=== PATIENT | female | born 1990 | race Caucasian/White ===

== ENCOUNTER 2019-05-24 05:41 | Emergency (ER) | payer OTHER | END 2019-05-24 07:47 | disposition other institution (70) | LOC: ED 05:41 | DX: Z02.89 Encounter for other administrative examinations (principal) ==

== ENCOUNTER 2020-01-28 00:10 | Emergency (ER) | payer OTHER ==
[~2020-01-28] VITALS: Ht 165.1 cm; Wt 49.9 kg
[2020-01-28 00:12] VITALS: BP 136/74; Ht 165.1 cm; Wt 49.9 kg
== END 2020-01-28 00:53 | disposition other institution (70) ==
LOC: ED 00:10
DX: Z02.89 Encounter for other administrative examinations (principal)

== ENCOUNTER 2020-04-08 14:37 | Emergency (ER) | payer OTHER ==
[~2020-04-08] VITALS: Ht 165.1 cm; Wt 59.0 kg
[2020-04-08 14:40] VITALS: Ht 165.1 cm; Wt 59.0 kg
[2020-04-08 16:41] LABS: BASOPHIL % 0.4 % (0-2); RED CELL DISTRIBUTION WIDTH 12.8 % (11.5-14.5)
[2020-04-08 16:42] LABS: PLATELET COUNT 461 x10^3mcL (130-400)
[2020-04-08 17:00] LABS: CALCIUM 9.3 mg/dL (8.5-10.1); CARBON DIOXIDE 31.9 mmol/L (21-32); CHLORIDE SERUM 98 mmol/L (98-107); CREATININE SERUM 0.8 mg/dL (0.6-1.0); GFR1 > 60 mL/min; GLUCOSE SERUM 85 mg/dL (74-106); POTASSIUM SERUM 3.5 mmol/L (3.5-5.1); SODIUM SERUM 133 mmol/L (136-145)
[2020-04-08 17:05] LABS: ALBUMIN 3.6 g/dL (3.4-5.0); ALKALINE PHOSPHATASE 113 U/L (46-116); ALT/SGPT 22 U/L (14-59); AST/SGOT 19 U/L (15-37); BILIRUBIN TOTAL 0.3 mg/dL (0.20-1.00)
[2020-04-08 17:21] LABS: TOTAL PROTEIN, SERUM 8.3 g/dL (6.4-8.2)
[2020-04-08 18:02] VITALS: BP 107/59
== END 2020-04-08 20:05 | disposition left against medical advice (07) ==
LOC: ED 14:37
PROVIDERS: Emergency Medicine
DX: L03.213 Periorbital cellulitis (principal); F11.10 Opioid abuse, uncomplicated
CPT/HCPCS: J0696; J2405; J3010; J3370; Q0092

== ENCOUNTER 2020-04-22 20:30 | Emergency (ER) | payer OTHER ==
[~2020-04-22] VITALS: Ht 162.6 cm; Wt 61.2 kg
[2020-04-22 21:04] VITALS: BP 113/49; Ht 162.6 cm; Wt 61.2 kg
== END 2020-04-22 22:33 | disposition left against medical advice (07) ==
LOC: ED 20:30
DX: Z53.21 Procedure and treatment not carried out due to patient leaving prior to being seen by health care provider (principal)

== ENCOUNTER 2020-05-10 02:38 | Emergency (ER) | payer OTHER ==
[~2020-05-10] VITALS: Ht 165.1 cm; Wt 59.0 kg
[2020-05-10 02:39] VITALS: BP 158/96; Ht 165.1 cm; Wt 59.0 kg
== END 2020-05-10 06:46 | disposition home or self-care (01) ==
LOC: ED 02:38
DX: R09.89 Other specified symptoms and signs involving the circulatory and respiratory systems (principal); Z20.828 Contact with and (suspected) exposure to other viral communicable diseases
CPT/HCPCS: U0003

== ENCOUNTER 2020-05-12 15:11 | Emergency (ER) | payer OTHER ==
[~2020-05-12] VITALS: Ht 165.1 cm; Wt 59.0 kg
[2020-05-12 15:53] VITALS: Ht 165.1 cm; Wt 59.0 kg
[2020-05-12 17:24] LABS: BASOPHIL % 0.2 % (0-2); PLATELET COUNT 294 x10^3mcL (130-400); RED CELL DISTRIBUTION WIDTH 13.9 % (11.5-14.5)
[2020-05-12 17:42] LABS: CALCIUM 8.6 mg/dL (8.5-10.1); CARBON DIOXIDE 31.2 mmol/L (21-32); CHLORIDE SERUM 103 mmol/L (98-107); CREATININE SERUM 1.1 mg/dL (0.6-1.0); GFR1 > 60 mL/min; GLUCOSE SERUM 100 mg/dL (74-106); POTASSIUM SERUM 4.1 mmol/L (3.5-5.1); SODIUM SERUM 141 mmol/L (136-145)
[2020-05-12 17:47] LABS: ALBUMIN 3.4 g/dL (3.4-5.0); ALKALINE PHOSPHATASE 93 U/L (46-116); ALT/SGPT 51 U/L (14-59); AST/SGOT 44 U/L (15-37); BILIRUBIN TOTAL 0.21 mg/dL (0.20-1.00); CHOLESTEROL 198 mg/dL (<200); TOTAL PROTEIN, SERUM 6.9 g/dL (6.4-8.2); TRIGLYCERIDES 53 mg/dL (<150)
[2020-05-12 17:52] LABS: CHOLESTEROL/HDL RATIO 2.1; HDL CHOLESTEROL 95 mg/dL (40-60)
[2020-05-12 21:27] VITALS: BP 119/82
== END 2020-05-12 21:27 | disposition home or self-care (01) ==
LOC: ED 15:11
PROVIDERS: Specialist
DX: T40.1X1A Poisoning by heroin, accidental (unintentional), initial encounter (principal); R11.0 Nausea; Y92.59 Other trade areas as the place of occurrence of the external cause
CPT/HCPCS: 36415; 83880; G0480; Q0162